=== PATIENT | male | born 1975 | race Caucasian/White ===

== ENCOUNTER 2016-12-13 16:27 | Day surgery (SDC) | payer BC ==
--- NOTE | 2016-12-11 22:12 | HP ---
CC: Dr. Ackerman * ADMITTING HISTORY AND PHYSICAL: DATE OF ADMISSION: 12/13/16 ADMITTING DIAGNOSES: 1. Right flank pain. 2. Hematuria. 3. Right renal calculus. PLANNED PROCEDURE: Shockwave lithotripsy of right renal calculus, possible right stent insertion. SURGEON: Oswaldo Marinelli MD HISTORY OF PRESENT ILLNESS: Bryson Reese is a 41-year-old gentleman with a history of recurrent renal calculi. He was recently evaluated for right flank pain and noted to have hematuria. Renal ultrasound revealed a 7 x 5 x 5 mm calculus in the right ureteropelvic junction with an additional 5 mm calculus in the right kidney. PAST MEDICAL HISTORY: Significant for: 1. Recurrent renal calculi. 2. Mixed hyperlipidemia. 3. Essential hypertension. 4. Lumbar radiculopathy. 5. Infantile cerebral palsy. 6. Psoriasis with arthropathy. MEDICATIONS ON ADMISSION: 1. Hydrocodone/acetaminophen p.r.n. 2. Carisoprodol 350 mg daily. 3. Amlodipine/benazepril 5/10 mg 1 tablet daily. 4. Atorvastatin 40 mg daily. 5. Humira every 3 weeks. 6. Aspirin 81 mg which is currently on hold. ALLERGIES AND INTOLERANCES: DIOVAN. PHYSICAL EXAMINATION GENERAL: Reveals a pleasant healthy-appearing young gentleman. VITAL SIGNS: Blood pressure is 150/94, pulse 95 per minute and regular, temperature 98, oxygen saturation 98% on room air. LUNGS: Clear bilaterally. CARDIOVASCULAR: Regular rate and rhythm. S1, S2. ABDOMEN: Soft with right flank tenderness. IMPRESSION: A 41-year-old gentleman with right flank pain and hematuria secondary to a 7 mm calculus in the right renal pelvis causing intermittent obstruction and an additional right renal calculus. PLAN: Planned procedure is shockwave lithotripsy of right renal calculi and possible right stent insertion. [id number]/CPS #: [id number] MTDD
[~2016-12-13 16:27] MED LIST: Buffered Lidocaine 0.9% SYRIN* 5 ML/SYR SYRINGE INTRADERM ONE; Buffered Lidocaine 0.9% SYRIN* 5 ML/SYR SYRINGE ONE; Dexamethasone IV* 4 MG/ML 1 ML (4 MG) IV SLOW PU ONE; Dexamethasone IV* 4 MG/ML 1 ML (4 MG) ONE; Famotidine IV* 10 MG/ML 2 ML (20 mg) IV ONE; Famotidine IV* 10 MG/ML 2 ML (20 mg) ONE; cefTRIAXone(*) 2 GM ADDV.VIAL IVPB ONE
--- NOTE | 2016-12-13 17:39 | RAD ---
INDICATION: Shock wave lithotripsy for right renal calculus COMPARISON: Similar radiograph dated December 11, 2016 TECHNIQUE: 2 views the abdomen were obtained. FINDINGS: At the level of the L1 vertebral body, corresponding to a 9 mm focus of calcium on the previous radiograph, there is a 4 mm focus of calcium overlying the expected location of the right renal collecting system. More inferiorly overlying the right transverse process of the L3 vertebral body is an additional 4 mm focus of calcium that was not seen before. IMPRESSION: RADIOGRAPHIC FINDINGS INDICATE REDUCTION IN SIZE OF RIGHT RENAL COLLECTING SYSTEM CALCULUS WITH ANTEGRADE DISPLACEMENT OF A 4 MM FOCUS OF CALCIUM OVERLYING THE EXPECTED LOCATION OF THE PROXIMAL RIGHT URETER.
[2016-12-13] MEDS ORDERED: Chloroprocaine 2%* 20 ML VIAL ONE (18:39)
[2016-12-13] MEDS ORDERED: Ondansetron INJ* 2 MG/ML VIAL ONE (18:39)
[2016-12-13] MEDS ORDERED: fentaNYL* 50 MCG/ML 2 ML VIAL (100 MCG VIAL) ONE ×2 (18:39→20:18)
[2016-12-13] MEDS ORDERED: Midazolam* 1 MG/ML 5 ML VIAL (5 MG) ONE (18:39)
[2016-12-13] MEDS ORDERED: Ondansetron INJ* 2 MG/ML VIAL IV PRN (19:30)
[2016-12-13] MEDS ORDERED: fentaNYL* 50 MCG/ML 2 ML VIAL (100 MCG VIAL) IV PRN (19:30)
[2016-12-13] MEDS ORDERED: DiMENhydriNATE IV* 50 MG/ML VIAL IV PUSH PRN (19:30)
[2016-12-13] MEDS ORDERED: oxyCODONE/Acetamin 5/325 MG* TAB ONE ×2 (20:18→20:45)
[2016-12-13] MEDS: oxyCODONE/Acetamin 5/325 MG* TAB PO PRN ×2 (20:21→20:52)
[2016-12-13 21:17] VITALS: BP 136/89
--- NOTE | 2016-12-13 21:55 | RAD ---
INDICATION: Right renal calculi COMPARISON: Similar KUB acquired at 1709 hours TECHNIQUE: 2 views the abdomen were obtained at 2114 hours FINDINGS: The previously identified renal calculi and ureteral calculi are not visible on this examination. IMPRESSION: INTERVAL RESOLUTION OF RIGHT-SIDED RENAL CALCULI DESCRIBED IN THE PRIOR KUB.
--- NOTE | 2016-12-14 13:01 | OP ---
CC: Dr. Berenice Mitchell * DATE OF OPERATION: 12/13/16 - SDS DATE OF : 71 SURGEON: Oswaldo Marinelli MD ANESTHESIOLOGIST: Toni Murphy MD ANESTHESIA: Spinal. PRE-OP DIAGNOSIS: Right renal calculi. POST-OP DIAGNOSIS: Right renal calculi. OPERATIVE PROCEDURE: Shock wave lithotripsy of right renal calculi. INDICATIONS: Bryson Reese is a 41-year-old gentleman with a history of recurrent renal calculi. He was recently evaluated for flank pain and was noted to have 2 calculi in the right kidney. COMPLICATIONS: None. POSTOPERATIVE CONDITION: Stable. DESCRIPTION OF PROCEDURE: After induction of spinal anesthesia, the patient was placed on lithotripsy table in the supine position. There were 2 calculi noted on fluoroscopy and dominant calculus which appeared to be in the area of renal pelvis was first addressed. Shock wave lithotripsy was carried out at a rate of 90 shocks per minute. After the initial 300 shocks, there was a pause in lithotripsy to minimize any potential trauma to the kidney. Lithotripsy was then resumed and a total of 2000 shocks were distributed between the 2 calculi with good fragmentation noted. The patient tolerated the procedure satisfactorily and was transferred back to the recovery area in stable condition. [id number]/CPS #: [id number] MTDD
== END 2016-12-13 21:00 | disposition home or self-care (01) ==
LOC: OR 16:27
PROVIDERS: ATTEND Urology
DX: N20.0 Calculus of kidney (principal); R31.9 Hematuria, unspecified; E78.5 Hyperlipidemia, unspecified; I10 Essential (primary) hypertension; G80.9 Cerebral palsy, unspecified; L40.50 Arthropathic psoriasis, unspecified; Z79.899 Other long term (current) drug therapy
CPT/HCPCS: 74000; A9270-GY; J0696; J1100; J1580; J2250; J2400; J2405; J3010

== ENCOUNTER 2018-07-21 16:20 | Observation (INO) | payer BC ==
[2018-07-21] MEDS ORDERED: Ketorolac INJ* 30 MG/ML 1 ML VIAL IV PUSH ONE (16:48)
[2018-07-21] MEDS ORDERED: Lorazepam PYXIS KEY PRN (16:48)
[2018-07-21] MEDS ORDERED: LORazepam INJ* 2 MG/ML 1 ML VIAL IV ONE (16:48)
--- NOTE | 2018-07-21 17:02 | ED ---
Back Pain - HPI Summary HPI Summary: This patient is a 43 year old male brought in by ambulance to [facility] with a chief complaint of back pain since 2 hours ago. Patient states that he has had a problem with back pain for several years and it is probably due to a disc. Patient states that todays episode was caused when he turned to move a laundry basket. Patient started suffering back spasms and EMS was called when the spasms would not stop. The pain is rated 8/10 in severity. Symptoms aggravated by nothing. Symptoms alleviated by Versed to mild relief. Patient denies any chest or abd pain, and denies any other medical complaints. - History of Current Complaint Chief Complaint: EDBackInjuryPain Stated Complaint: "BACK PAIN PER EMS" Time Seen by Provider: 07/21/18 16:46 Hx Obtained From: Patient Onset/Duration: Lasting Hours, Still Present Onset/Duration: Still Present Timing: Intermittent Back Pain Location: Is Discrete @ - lower mid back Severity Currently: Severe Pain Intensity: 8 Pain Scale Used: 0-10 Numeric Aggravating Symptom(s): Nothing Alleviating Symptom(s): Other - Versed Associated Signs And Symptoms: Positive: Negative - chest pain, abd pain - Allergies/Home Medications Allergies/Adverse Reactions: Allergies Allergy/AdvReac Type Severity Reaction Status Date / Time valsartan [From [facility]] Allergy Rash Verified 07/05/18 14:00 Home Medications: Home Medications Gabapentin 300 mg pe PO BEDTIME PRN 07/21/18 [History Confirmed 07/21/18] PMH/Surg Hx/FS Hx/Imm Hx Previously Healthy: No Endocrine/Hematology History: Denies: Hx Diabetes, Hx Thyroid Disease Cardiovascular History: Reports: Hx Coronary Artery Disease - CHOLESTEROL CONTROL WITH MEDICATION, Hx Hypercholesterolemia, Hx Hypertension, Other Cardiovascular Problems/Disorders - hyperlipidemia Denies: Hx Pacemaker/ICD Respiratory History: Reports: Hx Sleep Apnea - evaluation for 08/2013 Denies: Hx Asthma, Hx Chronic Obstructive Pulmonary Disease (COPD) GI History: Denies: Hx Ulcer, Other GI Disorders History: Reports: Hx Kidney Stones - chronic Denies: Hx Renal Disease Musculoskeletal History: Reports: Hx Arthritis, Hx Back Problems, Other Musculoskeletal History - CEREBRAL PALSY Sensory History: Denies: Hx Contacts or Glasses, Hx Hearing Aid Opthamlomology History: Denies: Hx Contacts or Glasses Neurological History: Reports: Hx Nerve Disease - radiculopathy second to lumbar disc herniation, Other Neuro Impairments/Disorders - cerebral palsy, PAIN CLINIC PT Psychiatric History: Denies: Hx Panic Disorder - Surgical History Surgery Procedure, Year, and Place: BILATERAL HAMSTRING LENGTHENING AND ABDUCTOR RELEASE X 2- [facility] 1998. Numerous surgery for muscle lengthening. Muscle release left eye approx 5 yrs ago. kidney stone surgery 4 years ago. kidney stone lithotripsy 2016. kidney stone lithotripsy 2017 Hx Anesthesia Reactions: No Infectious Disease History: No Infectious Disease History: Denies: Hx Hepatitis, Hx Human Immunodeficiency Virus (HIV), History Other Infectious Disease, Traveled Outside the [place] in Last 30 Days - Family History Family History: No FHx of malignant hyperthermia. No FHx of anesthesia reaction - Social History Lives: With Family Alcohol Use: Occasionally Hx Substance Use: No Substance Use Type: Reports: None Hx Tobacco Use: No Smoking Status (MU): Never Smoked Tobacco Have You Smoked in the Last Year: No Review of Systems Negative: Fever Negative: Chest Pain Negative: Abdominal Pain Positive: Other - back pain All Other Systems Reviewed And Are Negative: Yes Physical Exam - Summary Physical Exam Summary: Appearance: The patient is well-nourished in no acute distress and in no acute pain. Skin: The skin is warm and dry and skin color reflects adequate perfusion. HEENT: The head is normocephalic and atraumatic. The pupils are equal and reactive. The conjunctivae are clear and without drainage. Nares are patent and without drainage. Mouth reveals moist mucous membranes and the throat is without erythema and exudate. The external ears are intact. The ear canals are patent and without drainage. The tympanic membranes are intact. Neck: The neck is supple with full range of motion and non-tender. There are no carotid bruits. There is no neck vein distension. Respiratory: Chest is non-tender. Lungs are clear to auscultation and breath sounds are symmetrical and equal. Cardiovascular: Heart is regular rate and rhythm. There is no murmur or rub auscultated. There is no peripheral edema and pulses are symmetrical and equal. Abdomen: The abdomen is soft and non-tender. There are normal bowel sounds heard in all four quadrants and there is no organomegaly palpated. Musculoskeletal: Extremities are non-tender with full range of motion. There is good capillary refill. There is no peripheral edema or calf tenderness elicited. Positive straight leg test bilaterally. Tenderness in the parasacral region. Neurological: Patient is alert and oriented to person, place and time. The patient has symmetrical motor strength in all four extremities. Cranial nerves are grossly intact. Deep tendon reflexes are symmetrical and equal in all four extremities. Psychiatric: The patient has an appropriate affect and does not exhibit any anxiety or depression. Triage Information Reviewed: Yes Vital Signs On Initial Exam: Initial Vitals Temp Pulse Resp BP Pulse Ox 97.9 F 103 20 153/85 93 07/21/18 16:32 07/21/18 16:32 07/21/18 16:32 07/21/18 16:32 07/21/18 16:32 Vital Signs Reviewed: Yes Diagnostics - Vital Signs Vital Signs Temp Pulse Resp BP Pulse Ox 07/21/18 16:32 97.9 F 103 20 153/85 93 - Laboratory Result Diagrams: 07/21/18 19:23 07/21/18 19:23 Lab Statement: Any lab studies that have been ordered have been reviewed, and results considered in the medical decision making process. Back Pain Course/Dx - Course Course Of Treatment: Mr. Reese has a long history of low back problems. He thinks he pulled his back out at work this morning. I was unable to relieve his symptoms and get him ambulatory in spite of parenteral painkillers and muscle relaxers. I spoke with the hospitalist service about a transient admission. - Diagnoses Provider Diagnoses: Intractable back pain Discharge - Sign-Out/Discharge Documenting (check all that apply): Patient Departure Patient Received Moderate/Deep Sedation with Procedure: No - Discharge Plan Condition: Stable Disposition: ADMITTED TO [facility] - Billing Disposition and Condition Condition: STABLE Disposition: Admitted to [facility] - Attestation Statements Document Initiated by Denice: Yes Documenting Scribe: Blanka Ladd Provider For Whom Denice is Documenting (Include Credential): Bhaskar Cho MD Scribe Attestation: IBlanka, scribed for Bhaskar Cho MD on 07/22/18 at 1102. Scribe Documentation Reviewed: Yes Provider Attestation: The documentation as recorded by the Blanka giron accurately reflects the service I personally performed and the decisions made by me, Bhaskar Cho MD Status of Scribe Document: Viewed
[2018-07-21] MEDS ORDERED: HYDROmorphone INJ1* 1 MG/ML SYRINGE IV SLOW PU ONE (18:10)
[2018-07-21] MEDS ORDERED: Ondansetron INJ* 2 MG/ML VIAL IV ONE (18:10)
[2018-07-21] MEDS: Dexamethasone IV* 12 MG in PREMIX* 0 ML IV SLOW PU SCH (18:57)
[2018-07-21 19:36] LABS: ABS Lymphocytes 3.2 10^3/ul (1.0-4.8); ABS Monocytes 0.6 10^3/ul (0-0.8); ABS Neutrophils 7.7 10^3/ul (1.5-7.7); Eosinophil % 0.2 %; Hematocrit 46 % (42-52); Lymphocyte % 27.8 %; Mean Corpuscular HGB Conc 35 g/dL (31-36); Mean Corpuscular Hemoglobin 31 pg (27-31); Mean Corpuscular Volume 89 fL (80-94); Mean Platelet Volume 9.1 fL (7.4-10.4); Platelet Count 249 10^3/uL (150-450); Red Blood Count 5.18 10^6 /uL (4.18-5.48); Red Cell Distribution Width 13 % (10.5-15); White Blood Count 11.5 10^3/uL (3.5-10.8)
[2018-07-21 19:47] LABS: ALT 32 U/L (7-52); AST 24 U/L (13-39); Albumin 4.7 g/dL (3.2-5.2); Albumin/Globulin Ratio 1.7 (1-3); Alkaline Phosphatase 67 U/L (34-104); Anion Gap 8 mmol/L (2-11); BUN/Creatinine Ratio 15.5 (8-20); Blood Urea Nitrogen 13 mg/dL (6-24); C Reactive Protein < 1.00 mg/L (<8.01); CO2 Carbon Dioxide 23 mmol/L (22-32); Calcium 9.5 mg/dL (8.6-10.3); Chloride 107 mmol/L (101-111); EGFR African American 119.6 (>60); EGFR Non-African American 98.8 (>60); Globulin 2.7 g/dL (2-4); Glucose 101 mg/dL (70-100); Potassium 3.8 mmol/L (3.5-5.0); Sodium 138 mmol/L (135-145); Total Protein 7.4 g/dL (6.4-8.9)
[2018-07-21] MEDS ORDERED: Ondansetron INJ* 2 MG/ML VIAL IV PRN (20:26)
[2018-07-21] MEDS ORDERED: HYDROmorphone INJ* 0.5 MG/0.5 ML SYRINGE IV SLOW PU PRN ×2 (20:35→21:08)
[2018-07-21 20:38] LABS: Erythrocyte Sed Rate 0 mm/Hr (0-14)
[2018-07-21] MEDS ORDERED: Dexamethasone IV* 4 MG/ML 1 ML (4 MG) ONE (21:38)
[2018-07-21] MEDS: HYDROcodone/ACETAMIN 5-325 MG* 1 TAB PO PRN (21:42)
[2018-07-21] MEDS: HYDROmorphone INJ1* 1 MG/ML SYRINGE IV SLOW PU PRN (21:55)
--- NOTE | 2018-07-21 22:34 | HP ---
CC: Dr. Ackerman * HISTORY AND PHYSICAL: DATE OF ADMISSION: 07/21/18 PROVIDER: Tahmina Banegas NP PRIMARY CARE PROVIDERS: Dr. Ackerman. ATTENDING PHYSICIAN WHILE IN THE HOSPITAL: Joseph Carpio MD * (dictated by Tahmina Banegas NP) CHIEF COMPLAINT: Intractable back pain. HISTORY OF PRESENT ILLNESS: Mr. Reese is a 43-year-old male with a past medical history of hypertension, hyperlipidemia, cerebral palsy, chronic back pain, arthritis, and history of kidney stones who presented to the emergency room with acute onset of lower back pain. The patient reports that approximately 5 years ago he started with back pain. He reports that he has 5 bad disks in his back. He reports that he has had this back pain on and off and has been working with Dr. Palma in pain management. He also reports that he is scheduled to have a radiofrequency ablation at the end of the month with Dr. Palma. This evening, the patient reports that he bent over to pick the laundry basket and developed low back pain with spasms radiating to his left thigh that stops just at the knee. Due to the severe back pain and spasms, he was brought to the emergency room by EMS. The patient denies any fever, unintended weight loss, chest pain or edema, cough, hemoptysis, or shortness of breath. Denies any nausea, vomiting, diarrhea, or abdominal pain, gross hematuria, dysuria. He does report some tingling in the left lateral thigh with spasms. He denies any visual complaints, dysphagia, arthralgias, myalgias. He does report he has had a rash for 2 months in his groin that is being treated by Dr. Marinelli at this time. He denies any psychosis or anxiety. He denies any saddle anesthesia, any perineal numbness. He denies any loss of bladder or bowel function. Due to his intractable back pain, we were asked to see and evaluate him for admission. PAST MEDICAL HISTORY: 1. Hypertension. 2. Hyperlipidemia, 3. Cerebral palsy. 4. Back pain. 5. Arthritis. 6. Kidney stones. PAST SURGICAL HISTORY: 1. Hamstring lengthening. 2. Abductor tendon release. 3. Bilateral eye surgery for alignment. 4. Multiple tendon releases per the patient due to his cerebral palsy. HOME MEDICATIONS: 1. Amlodipine/benazepril 5/10 one tablet p.o. daily. 2. Atorvastatin 10 mg p.o. daily. 3. Soma 350 mg p.o. at bedtime. 4. Hydrocodone/acetaminophen 7.5/325 one tablet 3 times a day as needed for pain. 5. Humira 40 mg subcu q.21 days. FAMILY HISTORY: Father with a history of hypertension. Grandfather with diabetes. No reported history of cancer. SOCIAL HISTORY: The patient denies any tobacco or illicit drug use. He does report rare alcohol use. 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 He is . Surrogate decision maker in the event he is unable to make his own decisions is his , Erma. He is a full code. REVIEW OF SYSTEMS: A 14-point review of systems was completed. All pertinent positives are mentioned in the HPI, otherwise were negative. PHYSICAL EXAMINATION GENERAL: At this time, Mr. Reese is a 43-year-old male. He is resting on the stretcher in the emergency room. He does appear to be in moderate distress with frequent spasms. HEENT: Head is atraumatic, normocephalic. Eyes: EOMs are intact. Sclerae anicteric and not pale. Oral mucosa appeared to be moist. NECK: Supple. LUNGS: Clear to auscultation bilaterally. No wheezes, rales, or rhonchi. CARDIAC: S1, S2. Regular rate and rhythm. No murmurs, rubs, or gallops. ABDOMEN: Soft and nontender. Bowel sounds are present x4. BACK: No C-spine, T-spine, or L-spine tenderness to palpation. No CVA tenderness. EXTREMITIES: Pedal pulses are +2 bilaterally. There is no clubbing or cyanosis. PSYCH: The patient is calm and cooperative. SKIN: Intact. LABORATORY DATA AND DIAGNOSTIC STUDIES: WBCs were 11.5, RBCs 5.18, hemoglobin 16.0, hematocrit of 46, platelet count is 249. Sodium 138, potassium 3.8, chloride 107, carbon dioxide was 23, anion gap was 8, BUN was 13, creatinine 0.84, glucose 101. Calcium 9.5. ASTs were 24, ALTs were 32, alkaline phosphatase was 67. C- reactive protein was less than 1. ESR was 0. ASSESSMENT AND PLAN: Mr. Reese is a 43-year-old male with a past medical history significant for cerebral palsy, hypertension, hyperlipidemia, and chronic back pain who presented to the emergency room with severe back pain and muscle spasms. He will be admitted under observation for: 1. Intractable lower back pain. The patient reports a chronic history of chronic back pain, is followed with Dr. Palma in pain management. At this time , I will order Valium 5 mg q.8 hours as needed for muscle spasms. He can have Dilaudid 0.5 mg IV q.4 hours as needed for severe pain. He can have hydrocodone 2 tablets every 6 hours as needed for moderate to severe pain. I will continue his hydrocodone 1 tablet every 8 hours as needed for moderate to severe pain. I am going to hold his Soma this evening as the patient will be receiving Valium and Dilaudid in a concern for oversedation with the use of Soma. If the patient's symptoms do not improve or worsen, he develops urinary retention or saddle anesthesia, I would recommend an MRI and consult to neurosurgery. 2. Hyperlipidemia. The patient to have atorvastatin 10 mg p.o. daily. 3. Hypertension. The patient will continue on amlodipine 5 mg and lisinopril 10 mg p.o. daily. 4. FEN. He can have a regular diet. 5. Code status. He is a full code. 6. DVT prophylaxis. I will place him on SCDs. TIME SPENT: Time spent on this admission was 60 minutes, greater than half the time was spent at the bedside reviewing events leading thus far to his hospitalization, performing my physical exam, and reviewing my plan of care. I have discussed this with my attending, Dr. Joseph Carpio; he is in agreement with my plan. TAHMINA BANEGAS, [employer] [id number]/[facility] #: [id number] PRECIUOS
[2018-07-21] MEDS: Diazepam TAB(*) 5 MG PO PRN (23:09)
[2018-07-22] MEDS ORDERED: Dexamethasone IV* 4 MG/ML 1 ML (4 MG) ONE (00:21)
[2018-07-22] MEDS: Dexamethasone IV* 12 MG in PREMIX* 0 ML IV SLOW PU SCH (00:47)
[2018-07-22] MEDS: HYDROmorphone INJ1* 1 MG/ML SYRINGE IV SLOW PU PRN ×3 (04:48→20:07)
[2018-07-22] MEDS: HYDROcodone/ACETAMIN 5-325 MG* 1 TAB PO PRN ×2 (07:36→15:16)
[2018-07-22] MEDS: Diazepam TAB(*) 5 MG PO PRN ×2 (07:37→15:41)
[2018-07-22] MEDS: Lisinopril TAB* 10 MG PO SCH (08:39)
[2018-07-22] MEDS: amLODIPine TAB* 5 MG PO SCH (08:39)
--- NOTE | 2018-07-22 15:34 | PN ---
Subjective Date of Service: 07/22/18 Interval History: Pt seen and examined. Meds and labs reviewed. CC: Back pain slightly improved from average of 10/10 to 7/10 w/ numbness and pain of lateral thigh while numbness on anterior BL thighs ROS: Denied MAYES/dizziness, F/C, N/V, CP, SOB, increased cough, sputum production , abd pain, diarrhea, constipation, dysuria, myalgias, arthralgias, throat pain , and new skin lesions. The rest of the 14 point ROS are unremarkable. PHYSICAL EXAM: GEN APPEARANCE: Awake, not in acute distress HEENT: NC/AT, PERRLA, moist oral mucosa, (-) throat erythema NECK: Soft, supple, (-) cervical LAD, (-)JVD HEART: S1S2 WNL, RRR, No MRG CHEST: CTA, BL, GAE, No W/R/R ABD: Soft, ND/NT, NABS 4x Q EXT: No C/C/E SKIN: Warm to touch PSYCH: No active psychosis, hallucinations, depression, SI/HI Objective Active Medications: Acetaminophen (Tylenol Tab*) 1,000 mg PO BID [facility] Hydrocodone Bitart/Acetaminophen ([place] 5-325 Tab*) 2 tab PO Q6H PRN PRN Reason: PAIN - MODERATE Last Admin: 07/22/18 15:16 Dose: 2 tab Amlodipine Besylate (Norvasc Tab*) 5 mg PO QAM [facility] Last Admin: 07/22/18 08:39 Dose: 5 mg Atorvastatin Calcium (Lipitor*) 10 mg PO QPM [facility] Diazepam (Valium Tab(*)) 5 mg PO Q8H PRN PRN Reason: spasms Last Admin: 07/22/18 07:37 Dose: 5 mg Enoxaparin Sodium (Lovenox(*)) 40 mg SUBCUT Q24H [facility] Gabapentin (Neurontin Cap(*)) 200 mg PO TID [facility] Hydromorphone HCl (Dilaudid Inj1s*) 0.5 mg IV SLOW PU Q4H PRN PRN Reason: PAIN - SEVERE Last Admin: 07/22/18 10:11 Dose: 0.5 mg Lisinopril (Prinivil Tab*) 10 mg PO DAILY [facility] Last Admin: 07/22/18 08:39 Dose: 10 mg Miscellaneous (Ativan Pyxis Deluna) 1 ea N/A .ATIVAN IV DELUNA PRN PRN Reason: PYXIS DELUNA Ondansetron HCl (Zofran Inj*) 4 mg IV Q6H PRN PRN Reason: NAUSEA/VOMITING Vital Signs - 8 hr 07/22/18 07/22/18 07/22/18 07:36 07:37 07:43 Temperature 98.2 F Pulse Rate 82 Respiratory 16 16 18 Rate Blood Pressure 120/65 (mmHg) O2 Sat by Pulse 94 Oximetry 07/22/18 07/22/18 07/22/18 09:40 10:11 11:48 Temperature 98.4 F Pulse Rate 92 Respiratory 16 16 20 Rate Blood Pressure 105/64 (mmHg) O2 Sat by Pulse 93 Oximetry 07/22/18 15:16 Temperature Pulse Rate Respiratory 16 Rate Blood Pressure (mmHg) O2 Sat by Pulse Oximetry Oxygen Devices in Use Now: None Result Diagrams: 07/21/18 19:23 07/21/18 19:23 Assess/Plan/Problems-Billing Assessment: - Patient Problems (1) Low back pain Current Visit: Yes Status: Acute Code(s): M54.5 - LOW BACK PAIN SNOMED Code(s): 643015816 Comment: -Pt mentions he has been evaluated years ago by Dr. Chau and the decision was conservative management -Ordered MRI today to compare from previous and shows left-sided dic protrusion at L2-L3 progressed in comparison to 2016 imaging and that central disc protrusion at L3-L4 is retracted compared to 2016. -Discussed above results with Dr. Chau and mentioned pt can F/U as an outpt and will defer -Will start pt on low dose Gabapentin and scheduled Tylenol -Continue PRN pain meds ordered (2) Hyperlipidemia Current Visit: Yes Status: Acute Code(s): E78.5 - HYPERLIPIDEMIA, UNSPECIFIED SNOMED Code(s): 64756844 Comment: -Continue Atorvastatin (3) HTN (hypertension) Current Visit: Yes Status: Acute Code(s): I10 - ESSENTIAL (PRIMARY) HYPERTENSION SNOMED Code(s): 22040440 Comment: -Well-controlled -Continue Amlodipine and Lisinopril (4) DVT prophylaxis Current Visit: Yes Status: Acute Code(s): Z29.9 - ENCOUNTER FOR PROPHYLACTIC MEASURES, UNSPECIFIED SNOMED Code(s): 712609816 Comment: -Continue SCDs -Given pain limits pts movement significantly, will place pt on Lovenox SQ Status and Disposition: -For PT eval -For possible D/C in 1-2 days
[2018-07-22] MEDS: Enoxaparin(*) 40 MG/0.4 ML SYR SUBCUT SCH (15:41)
[2018-07-22] MEDS: Gabapentin CAP(*) 100 MG PO SCH ×2 (15:47→20:06)
[2018-07-22] MEDS ORDERED: Gabapentin CAP(*) 100 MG PO SCH (16:00)
[2018-07-22] MEDS: Atorvastatin* 10 MG TAB PO SCH (17:29)
[2018-07-22] MEDS: Acetaminophen TAB* 325 MG PO SCH (20:06)
[2018-07-23] MEDS: HYDROmorphone INJ1* 1 MG/ML SYRINGE IV SLOW PU PRN ×4 (03:07→18:52)
[2018-07-23] MEDS: Diazepam TAB(*) 5 MG PO PRN ×3 (03:14→21:24)
[2018-07-23] MEDS: HYDROcodone/ACETAMIN 5-325 MG* 1 TAB PO PRN ×3 (03:59→21:23)
[2018-07-23] MEDS: amLODIPine TAB* 5 MG PO SCH (07:51)
[2018-07-23] MEDS: Lisinopril TAB* 10 MG PO SCH (07:51)
[2018-07-23] MEDS: Acetaminophen TAB* 325 MG PO SCH ×2 (07:51→21:23)
[2018-07-23] MEDS: Gabapentin CAP(*) 100 MG PO SCH (07:51)
[2018-07-23 08:19] LABS: ABS Lymphocytes 4.2 10^3/ul (1.0-4.8); ABS Monocytes 0.7 10^3/ul (0-0.8); ABS Neutrophils 5.6 10^3/ul (1.5-7.7); Eosinophil % 0.3 %; Hematocrit 45 % (42-52); Hemoglobin 15.2 g/dL (14.0-18.0); Lymphocyte % 39.7 %; Mean Corpuscular HGB Conc 34 g/dL (31-36); Mean Corpuscular Hemoglobin 31 pg (27-31); Mean Corpuscular Volume 90 fL (80-94); Mean Platelet Volume 8.7 fL (7.4-10.4); Nucleated Red Blood Cells % 0.1; Platelet Count 227 10^3/uL (150-450); Red Blood Count 4.95 10^6 /uL (4.18-5.48); Red Cell Distribution Width 13 % (10.5-15); White Blood Count 10.6 10^3/uL (3.5-10.8)
[2018-07-23 08:35] LABS: Albumin 4.4 g/dL (3.2-5.2); Albumin/Globulin Ratio 1.6 (1-3); BUN/Creatinine Ratio 20.9 (8-20); EGFR African American 116.4 (>60); EGFR Non-African American 96.2 (>60); Globulin 2.7 g/dL (2-4); Magnesium 2.2 mg/dL (1.9-2.7); Phosphorus 3.6 mg/dL (2.5-5.0); Total Bilirubin 0.7 mg/dL (0.2-1.0); Total Protein 7.1 g/dL (6.4-8.9)
[2018-07-23] MEDS ORDERED: Methocarbamol TAB* 500 MG PO SCH ×2 (09:00)
[2018-07-23] MEDS ORDERED: Gabapentin CAP(*) 300 MG PO SCH (09:00)
[2018-07-23] MEDS ORDERED: Gabapentin CAP(*) 100 MG PO ONE (10:00)
[2018-07-23] MEDS ORDERED: Polyethylene Glycol 3350* 17 GM PACKET PO STA (13:59)
[2018-07-23] MEDS ORDERED: Senna/Docusate (NF) TAB PO SCH (14:00)
--- NOTE | 2018-07-23 14:04 | PN ---
Subjective Date of Service: 07/23/18 Interval History: Pt seen and examined. Meds and labs reviewed. Pt was walking late last night and experienced severe muscle spasms while in the bathroom. Staff reported he was unable to get out due to pain on movement for almost an hour. Pain meds adjusted. Please see below. CC: Back pain/cramping severe exacerbation. Recently received pain meds and currently at 07/19 ROS: Denied MAYES/dizziness, F/C, N/V, CP, SOB, increased cough, sputum production , abd pain, diarrhea, constipation, dysuria, throat pain, and new skin lesions. The rest of the 14 point ROS are unremarkable. PHYSICAL EXAM: GEN APPEARANCE: Awake, not in acute distress HEENT: NC/AT, PERRLA, moist oral mucosa, (-) throat erythema NECK: Soft, supple, (-) cervical LAD, (-)JVD HEART: S1S2 WNL, RRR, No MRG CHEST: CTA, BL, GAE, No W/R/R ABD: Soft, ND/NT, NABS 4x Q EXT: No C/C/E SKIN: Warm to touch PSYCH: No active psychosis, hallucinations, depression, SI/HI Objective Active Medications: Acetaminophen (Tylenol Tab*) 975 mg PO BID [facility] Last Admin: 07/23/18 07:51 Dose: 975 mg Hydrocodone Bitart/Acetaminophen ([place] 5-325 Tab*) 2 tab PO Q6H PRN PRN Reason: PAIN - MODERATE Last Admin: 07/23/18 12:09 Dose: 2 tab Amlodipine Besylate (Norvasc Tab*) 5 mg PO QAM [facility] Last Admin: 07/23/18 07:51 Dose: 5 mg Atorvastatin Calcium (Lipitor*) 10 mg PO QPM [facility] Last Admin: 07/22/18 17:29 Dose: 10 mg Diazepam (Valium Tab(*)) 5 mg PO Q8H PRN PRN Reason: spasms Last Admin: 07/23/18 12:10 Dose: 5 mg Enoxaparin Sodium (Lovenox(*)) 40 mg SUBCUT Q24H [facility] Last Admin: 07/22/18 15:41 Dose: 40 mg Gabapentin (Neurontin Cap(*)) 300 mg PO 0900,1400,2100 [facility] Hydromorphone HCl (Dilaudid Inj1s*) 0.5 mg IV SLOW PU Q4H PRN PRN Reason: PAIN - SEVERE Last Admin: 07/23/18 07:51 Dose: 0.5 mg Lisinopril (Prinivil Tab*) 10 mg PO DAILY [facility] Last Admin: 07/23/18 07:51 Dose: 10 mg Methocarbamol (Robaxin Tab*) 1,000 mg PO QID [facility] Miscellaneous (Ativan Pyxis Lowry) 1 ea N/A .ATIVAN IV LOWRY PRN PRN Reason: PYXIS LOWRY Ondansetron HCl (Zofran Inj*) 4 mg IV Q6H PRN PRN Reason: NAUSEA/VOMITING Polyethylene Glycol/Electrolytes (Miralax*) 17 gm PO ONCE STA Stop: 07/23/18 14:00 Senna/Docusate Sodium (Sennokot-S(Nf)) 2 tab PO DAILY [facility] Vital Signs - 8 hr 07/23/18 07/23/18 07/23/18 07:00 07:35 07:51 Temperature 98.8 F Pulse Rate 72 Respiratory 16 18 16 Rate Blood Pressure 109/56 (mmHg) O2 Sat by Pulse 94 Oximetry 07/23/18 07/23/18 07/23/18 08:50 09:43 09:45 Temperature Pulse Rate Respiratory 16 16 16 Rate Blood Pressure (mmHg) O2 Sat by Pulse Oximetry 07/23/18 07/23/18 07/23/18 12:00 12:09 12:10 Temperature Pulse Rate Respiratory 16 16 16 Rate Blood Pressure (mmHg) O2 Sat by Pulse Oximetry Oxygen Devices in Use Now: None Result Diagrams: 07/23/18 08:11 07/23/18 08:10 Assess/Plan/Problems-Billing Assessment: - Patient Problems (1) Low back pain Current Visit: Yes Status: Acute Code(s): M54.5 - LOW BACK PAIN SNOMED Code(s): 115752010 Comment: -Pt mentions he has been evaluated years ago by Dr. Chau and the decision was conservative management -Ordered MRI today to compare from previous and shows left-sided dic protrusion at L2-L3 progressed in comparison to 2016 imaging and that central disc protrusion at L3-L4 is retracted compared to 2016. -Discussed above results with Dr. Chau and mentioned pt can F/U as an outpt and will defer -Continue scheduled Tylenol doses -Increase Gabapentin to 300 mg PO TID and added Methocarbamol for muscle spasms -D/W Dr. Tijerina---will await further input -Continue PRN pain meds ordered (2) Hyperlipidemia Current Visit: Yes Status: Acute Code(s): E78.5 - HYPERLIPIDEMIA, UNSPECIFIED SNOMED Code(s): 31991677 Comment: -Continue Atorvastatin (3) HTN (hypertension) Current Visit: Yes Status: Acute Code(s): I10 - ESSENTIAL (PRIMARY) HYPERTENSION SNOMED Code(s): 74201496 Comment: -Well-controlled -Continue Amlodipine and Lisinopril (4) DVT prophylaxis Current Visit: Yes Status: Acute Code(s): Z29.9 - ENCOUNTER FOR PROPHYLACTIC MEASURES, UNSPECIFIED SNOMED Code(s): 077243401 Comment: -Continue SCDs -Given pain limits pts movement significantly, will place pt on Lovenox SQ Status and Disposition: -For PT eval -Will await Dr. Lock input -Possible D/C in AM
[2018-07-23] MEDS: Senna TAB PO SCH (14:25)
[2018-07-23] MEDS: Methocarbamol TAB* 500 MG PO SCH ×2 (14:25→17:09)
[2018-07-23] MEDS: Gabapentin CAP(*) 300 MG PO SCH ×2 (14:26→21:24)
[2018-07-23] MEDS: Docusate CAP* 100 MG PO SCH (14:26)
[2018-07-23] MEDS: Atorvastatin* 10 MG TAB PO SCH (17:09)
[2018-07-23] MEDS: Enoxaparin(*) 40 MG/0.4 ML SYR SUBCUT SCH (17:09)
--- NOTE | 2018-07-23 17:38 | CONSULT ---
Consult Consult: INPATIENT PAIN CONSULTATION Bryson andrews a 43 year old male. He has cerebral palsy with spastic diplegia. He had several tendon lengthening surgeries as a child and young adult , and wore leg braces as a child. He has some ongoing difficulties with spasticity in his legs. He has been able to work at [employer]. He has a long history of low back pain and has seen Dr. Palma and Facundo in the pain clinic since 2015. He had an MRI of the lumbar spine in 2013. This showed a left disc herniation at L4/5. After he saw Dr. Palma he had a new MRI of the lumbar spine in Apr, 2015, showing a left disc extrusion at L2/3 and a broad based disc bulge at L4/5. The patient underwent LESIs and later had medial branch blocks and RFA of the left L4/5 and L5/S1 and then the right L4/5 and L5/S1. He takes Baclofen 10 mg at 6 pm and Soma 350 mg before bed, as well as hydrocodone/ APAP 5/325 TID. He was last seen on July 05. 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 He had immediate pain in his low back that knocked him to the floor. He came to the ER here and was admitted. He had a new MRI of his lumbar spine. Again was seen the left sided disc at L2/3, central disc protrusion at L4/5 and central disc protrusion at L3/4. I have been asked to see him. He describes a lot of spasms in his back. He is currently on hydrocodone/APAP, 5/325, 2 tabs Q6 PRN, Valium 5 mg PO TID PRN, Robaxin 1,000 mg Q6 PRN, and dilaudid, 0.5 mg IV Q4 PRN, and gabapentin 300 mg TID. I am asked to see him PAST MEDICAL HISTORY: Cerebral Palsy, Low back pain, HTN, hyperlipidemia Allergies Allergy/AdvReac Type Severity Reaction Status Date / Time valsartan [From Juan Miguel] Allergy Rash Verified 07/05/18 14:00 Current Medications Acetaminophen (Tylenol Tab*) 975 mg PO BID [facility] Last Admin: 07/23/18 07:51 Dose: 975 mg Hydrocodone Bitart/Acetaminophen ([place] 5-325 Tab*) 2 tab PO Q6H PRN PRN Reason: PAIN - MODERATE Last Admin: 07/23/18 12:09 Dose: 2 tab Amlodipine Besylate (Norvasc Tab*) 5 mg PO QAM [facility] Last Admin: 07/23/18 07:51 Dose: 5 mg Atorvastatin Calcium (Lipitor*) 10 mg PO QPM [facility] Last Admin: 07/23/18 17:09 Dose: 10 mg Diazepam (Valium Tab(*)) 5 mg PO Q8H PRN PRN Reason: spasms Last Admin: 07/23/18 12:10 Dose: 5 mg Docusate Sodium (Colace Cap*) 100 mg PO DAILY [facility] Last Admin: 07/23/18 14:26 Dose: 100 mg Enoxaparin Sodium (Lovenox(*)) 40 mg SUBCUT Q24H [facility] Last Admin: 07/23/18 17:09 Dose: 40 mg Gabapentin (Neurontin Cap(*)) 300 mg PO 0900,1400,2100 [facility] Last Admin: 07/23/18 14:26 Dose: 300 mg Hydromorphone HCl (Dilaudid Inj1s*) 0.5 mg IV SLOW PU Q4H PRN PRN Reason: PAIN - SEVERE Last Admin: 07/23/18 14:27 Dose: 0.5 mg Lisinopril (Prinivil Tab*) 10 mg PO DAILY [facility] Last Admin: 07/23/18 07:51 Dose: 10 mg Methocarbamol (Robaxin Tab*) 1,000 mg PO QID [facility] Last Admin: 07/23/18 17:09 Dose: 1,000 mg Miscellaneous (Ativan Pyxis Lowry) 1 ea N/A .ATIVAN IV LOWRY PRN PRN Reason: PYXIS LOWRY Ondansetron HCl (Zofran Inj*) 4 mg IV Q6H PRN PRN Reason: NAUSEA/VOMITING Senna (Senokot Tab*) 2 tab PO DAILY [facility] Last Admin: 07/23/18 14:25 Dose: 2 tab SOCIAL HISTORY: , lives with . Works for [employer]. Non-smoker, rare drinker ROS: No SOB or chest pain. Vital Signs Temp Pulse Resp BP Pulse Ox 97.5 F 76 16 135/89 93 07/23/18 15:54 07/23/18 15:54 07/23/18 17:09 07/23/18 15:54 07/23/18 15:54 EXAM: LUNGS: Clear HEART: Reg rhythm ABDOMEN: Soft EXTREMITIES: Increased tone, bilateral LEs. Left leg has less bulk than right. UE tone may be slightly increased BACK: Muscle tightness in low back NEUROLOGIC: alert and oriented. Decreased strength in lower extremities ASSESSMENT: 1. Low Back Pain 2. Cerebral Palsy/Spastic Diplegia PLAN: I will add back in scheduled Baclofen, 10 mg TID. Continue hydrocodone. Will d/c Robaxin. I will try to see tomorrow. Much of the back pain seems due to spasticity and an injection probably will not help him.
[2018-07-23] MEDS: Baclofen TAB* 10 MG PO SCH (21:24)
[2018-07-24] MEDS: HYDROcodone/ACETAMIN 5-325 MG* 1 TAB PO PRN ×3 (08:37→22:20)
[2018-07-24] MEDS: Docusate CAP* 100 MG PO SCH ×2 (08:38→21:52)
[2018-07-24] MEDS: Lisinopril TAB* 10 MG PO SCH (08:38)
[2018-07-24] MEDS: Acetaminophen TAB* 325 MG PO SCH ×2 (08:38→21:53)
[2018-07-24] MEDS: Senna TAB PO SCH (08:38)
[2018-07-24] MEDS: Baclofen TAB* 10 MG PO SCH ×3 (08:39→21:53)
[2018-07-24] MEDS: Gabapentin CAP(*) 300 MG PO SCH ×3 (08:39→21:53)
[2018-07-24] MEDS: amLODIPine TAB* 5 MG PO SCH (09:09)
[2018-07-24] MEDS: Diazepam TAB(*) 5 MG PO PRN ×2 (09:36→16:51)
--- NOTE | 2018-07-24 10:26 | PN ---
Subjective Date of Service: 07/24/18 Interval History: Pt is feeling ok currently. He just ambulated to outside the room door and back with PT. He thinks he may have been able to go a little further but did not want to push it too much. He does not feel ready to go home yet as he has several stairs at home and he has not done stairs yet. In terms of his pain he states it is more constant than it had been. He thinks using the back brace helped a little. Objective Active Medications: Acetaminophen (Tylenol Tab*) 975 mg PO BID [facility] Last Admin: 07/24/18 08:38 Dose: 975 mg Hydrocodone Bitart/Acetaminophen ([place] 5-325 Tab*) 2 tab PO Q6H PRN PRN Reason: PAIN - MODERATE Last Admin: 07/24/18 08:37 Dose: 2 tab Amlodipine Besylate (Norvasc Tab*) 5 mg PO QAM [facility] Last Admin: 07/24/18 09:09 Dose: 5 mg Atorvastatin Calcium (Lipitor*) 10 mg PO QPM [facility] Last Admin: 07/23/18 17:09 Dose: 10 mg Baclofen (Lioresal Tab*) 10 mg PO TID [facility] Last Admin: 07/24/18 08:39 Dose: 10 mg Diazepam (Valium Tab(*)) 5 mg PO Q8H PRN PRN Reason: spasms Last Admin: 07/24/18 09:36 Dose: 5 mg Docusate Sodium (Colace Cap*) 100 mg PO DAILY [facility] Last Admin: 07/24/18 08:38 Dose: 100 mg Enoxaparin Sodium (Lovenox(*)) 40 mg SUBCUT Q24H [facility] Last Admin: 07/23/18 17:09 Dose: 40 mg Gabapentin (Neurontin Cap(*)) 300 mg PO 0900,1400,2100 [facility] Last Admin: 07/24/18 08:39 Dose: 300 mg Hydromorphone HCl (Dilaudid Inj1s*) 0.5 mg IV SLOW PU Q4H PRN PRN Reason: PAIN - SEVERE Last Admin: 07/23/18 18:52 Dose: 0.5 mg Lisinopril (Prinivil Tab*) 10 mg PO DAILY [facility] Last Admin: 07/24/18 08:38 Dose: 10 mg Miscellaneous (Ativan Pyxis Deluna) 1 ea N/A .ATIVAN IV DELUNA PRN PRN Reason: PYXIS DELUNA Ondansetron HCl (Zofran Inj*) 4 mg IV Q6H PRN PRN Reason: NAUSEA/VOMITING Senna (Senokot Tab*) 2 tab PO DAILY [facility] Last Admin: 07/24/18 08:38 Dose: 2 tab Vital Signs - 8 hr 07/24/18 07/24/18 07/24/18 07:27 08:00 08:37 Temperature 97.6 F Pulse Rate 68 Respiratory 18 18 18 Rate Blood Pressure 109/66 (mmHg) O2 Sat by Pulse 95 Oximetry 07/24/18 07/24/18 07/24/18 08:39 09:36 10:21 Temperature Pulse Rate Respiratory 18 18 18 Rate Blood Pressure (mmHg) O2 Sat by Pulse Oximetry Oxygen Devices in Use Now: None Appearance: Middle aged male walking back to bed, NAD Eyes: No Scleral Icterus Ears/Nose/Mouth/Throat: Mucous Membranes Moist Respiratory: Symmetrical Chest Expansion and Respiratory Effort, Clear to Auscultation Cardiovascular: NL Sounds; No Murmurs; No JVD, RRR, No Edema Abdominal: NL Sounds; No Tenderness; No Distention Extremities: No Clubbing, Cyanosis Skin: No Nodules or Sclerosis Neurological: Alert and Oriented x 3 Result Diagrams: 07/23/18 08:11 07/23/18 08:10 Assess/Plan/Problems-Billing Ms Reese is a 43 yo M who has a h/o CP and chronic back pain who presented to the ER with c/o severe back pain. - Patient Problems (1) Intractable back pain Current Visit: Yes Status: Acute Code(s): M54.9 - DORSALGIA, UNSPECIFIED SNOMED Code(s): 109890090 Comment: Pt has had improvement in his mobility but is not back to baseline. Will continue the current pain regimen as there has been noticable change by nursing. Await any further recommendations from Dr. Tijerina. Attempt stairs prior to going home. (2) HTN (hypertension) Current Visit: Yes Status: Acute Code(s): I10 - ESSENTIAL (PRIMARY) HYPERTENSION SNOMED Code(s): 73565983 Comment: BP is under good control. Continue amlodipine 5mg daily and lisinopril 10mg daily (in substitution of amlodipin/benazepril). (3) Hyperlipidemia Current Visit: Yes Status: Acute Code(s): E78.5 - HYPERLIPIDEMIA, UNSPECIFIED SNOMED Code(s): 06066810 Comment: Continue lipitor. (4) DVT prophylaxis Current Visit: Yes Status: Acute Code(s): Z29.9 - ENCOUNTER FOR PROPHYLACTIC MEASURES, UNSPECIFIED SNOMED Code(s): 970705337 Comment: lovenox (5) Full code status Current Visit: Yes Status: Acute Code(s): Z78.9 - OTHER SPECIFIED HEALTH STATUS SNOMED Code(s): 045387222 Status and Disposition: .
[2018-07-24] MEDS ORDERED: Polyethylene Glycol 3350* 17 GM PACKET PO PRN (12:46)
[2018-07-24] MEDS ORDERED: Magnesium Hydroxide LIQ* 30 ML UDC PO ONE (12:47)
--- NOTE | 2018-07-24 12:51 | PN ---
Progress Note - Progress Note Date of Service: 07/24/18 Note: INPATIENT PAIN-PROGRESS Able to walk to the hallway with PT. He tells me the pain is still there. He also notes he has not had a BM since he was admitted. Current Medications Acetaminophen (Tylenol Tab*) 975 mg PO BID [facility] Last Admin: 07/24/18 08:38 Dose: 975 mg Hydrocodone Bitart/Acetaminophen ([place] 5-325 Tab*) 2 tab PO Q6H PRN PRN Reason: PAIN - MODERATE Last Admin: 07/24/18 08:37 Dose: 2 tab Amlodipine Besylate (Norvasc Tab*) 5 mg PO QAM [facility] Last Admin: 07/24/18 09:09 Dose: 5 mg Atorvastatin Calcium (Lipitor*) 10 mg PO QPM [facility] Last Admin: 07/23/18 17:09 Dose: 10 mg Baclofen (Lioresal Tab*) 10 mg PO TID [facility] Last Admin: 07/24/18 08:39 Dose: 10 mg Diazepam (Valium Tab(*)) 5 mg PO Q8H PRN PRN Reason: spasms Last Admin: 07/24/18 09:36 Dose: 5 mg Docusate Sodium (Colace Cap*) 100 mg PO BID [facility] Enoxaparin Sodium (Lovenox(*)) 40 mg SUBCUT Q24H [facility] Last Admin: 07/23/18 17:09 Dose: 40 mg Gabapentin (Neurontin Cap(*)) 300 mg PO 0900,1400,2100 [facility] Last Admin: 07/24/18 08:39 Dose: 300 mg Hydromorphone HCl (Dilaudid Inj1s*) 0.5 mg IV SLOW PU Q4H PRN PRN Reason: PAIN - SEVERE Last Admin: 07/23/18 18:52 Dose: 0.5 mg Lisinopril (Prinivil Tab*) 10 mg PO DAILY [facility] Last Admin: 07/24/18 08:38 Dose: 10 mg Magnesium Hydroxide (Milk Of Magnesia Liq*) 30 ml PO ONCE ONE Stop: 07/24/18 12:48 Miscellaneous (Ativan Pyxis Deluna) 1 ea N/A .ATIVAN IV DELUNA PRN PRN Reason: PYXIS DELUNA Ondansetron HCl (Zofran Inj*) 4 mg IV Q6H PRN PRN Reason: NAUSEA/VOMITING Polyethylene Glycol/Electrolytes (Miralax*) 17 gm PO DAILY PRN PRN Reason: CONSTIPATION Senna (Senokot Tab*) 2 tab PO DAILY [facility] Last Admin: 07/24/18 08:38 Dose: 2 tab Vital Signs Temp Pulse Resp BP Pulse Ox 97.6 F 68 16 109/66 95 07/24/18 07:27 07/24/18 07:27 07/24/18 11:10 07/24/18 07:27 07/24/18 07:27 EXAM: BACK: Tight muscles in paraspinal area EXTREMITIES: Increased tone BLE. ASSESSMENT: 1. Low Back Pain 2. Cerebral Palsy PLAN: Continue Baclofen 10 TID, gradual mobilization with PT, [place] 1-2 PO Q4 PRN. I added MOM for constipation
[2018-07-24] MEDS ORDERED: HYDROcodone/ACETAMIN 5-325 MG* 1 TAB PO PRN (12:52)
[2018-07-24] MEDS: Enoxaparin(*) 40 MG/0.4 ML SYR SUBCUT SCH (14:11)
[2018-07-24] MEDS: Atorvastatin* 10 MG TAB PO SCH (16:51)
[2018-07-24] MEDS: HYDROmorphone INJ1* 1 MG/ML SYRINGE IV SLOW PU PRN (19:54)
[2018-07-25] MEDS: HYDROmorphone INJ1* 1 MG/ML SYRINGE IV SLOW PU PRN (00:48)
[2018-07-25] MEDS: Diazepam TAB(*) 5 MG PO PRN ×2 (00:48→10:49)
[2018-07-25 08:06] VITALS: BP 104/64
[2018-07-25] MEDS: HYDROcodone/ACETAMIN 5-325 MG* 1 TAB PO PRN (08:50)
[2018-07-25] MEDS: Senna TAB PO SCH (08:51)
[2018-07-25] MEDS: Docusate CAP* 100 MG PO SCH (08:51)
[2018-07-25] MEDS: Gabapentin CAP(*) 300 MG PO SCH ×2 (08:51→14:09)
[2018-07-25] MEDS: amLODIPine TAB* 5 MG PO SCH (08:51)
[2018-07-25] MEDS: Lisinopril TAB* 10 MG PO SCH (08:51)
[2018-07-25] MEDS: Baclofen TAB* 10 MG PO SCH ×2 (08:52→14:09)
[2018-07-25] MEDS: Acetaminophen TAB* 325 MG PO SCH (08:53)
== END 2018-07-25 14:45 | disposition home or self-care (01) ==
LOC: ED 16:20 → MED 20:26 → OBSVTOIN 07-23 11:17 → INTOOBSV 07-23 11:17
PROVIDERS: ADMIT Internal Medicine; ATTEND Hospitalist
DX: M54.5 Low back pain (principal); G80.9 Cerebral palsy, unspecified; I10 Essential (primary) hypertension; E78.5 Hyperlipidemia, unspecified; M51.36 Other intervertebral disc degeneration, lumbar region; Z87.442 Personal history of urinary calculi; M19.90 Unspecified osteoarthritis, unspecified site
CPT/HCPCS: 36415; 72148; 80053; 83735; 84100; 85025; 85652; 86140; 96365; 96372; 96375; 96376; 99283; A9270-GY; G0378; J1100; J1170; J1650; J1885; J2060; J2405

== ENCOUNTER 2023-08-13 13:26 | Inpatient (IN) ==
[2023-08-13] MEDS: Lactated Ringers 1000 ml BAG 1,000 ML IV ONE (15:21)
[2023-08-13] MEDS: HYDROmorphone 1 MG/1 ML SYRINGE IV SLOW PU ONE ×4 (15:22→23:02)
[2023-08-13 15:38] LABS: ABS Monocytes 0.5 10^3/uL (0.0-1.1); ABS Neutrophils 7.4 10^3/uL (1.5-7.6); ABS Nucleated RBC 0.03 10^3/ul; Hematocrit 46.2 % (38-53); Hemoglobin 15.6 g/dL (13.2-16.3); Lymphocyte % 27.8 %; Mean Corpuscular Hemoglobin 30.2 pg (27-33); Mean Corpuscular Hgb Conc 33.8 g/dL (31-36); Mean Corpuscular Volume 89.6 fL (80-97); Nucleated Red Blood Cells % 0.3 %/100WBC (0.0-0.8); Platelet Count 235 10^3/uL (150-450); Red Blood Count 5.16 10^6/uL (4.06-5.63); Red Cell Distribution Width 13.1 % (12-17); White Blood Count 10.9 10^3/uL (3.6-10.2)
[2023-08-13 16:54] LABS: Anion Gap 14 mmol/L (2-16); Blood Urea Nitrogen 17 mg/dL (6-24); C Reactive Protein < 1.00 mg/L (<8.01); CO2 Carbon Dioxide 26 mmol/L (22-32); Calcium 9.3 mg/dL (8.6-10.3); Chloride 100 mmol/L (101-111); Creatinine, Serum 1.05 mg/dL (0.67-1.17); Glucose 85 mg/dL (70-100); Potassium 4.2 mmol/L (3.5-5.0); Sodium 140 mmol/L (135-145); eGFR CKD-EPI 86.5 (>60)
[2023-08-13] MEDS: Orphenadrine Citrate INJ 30 mg/ml 2 ml VIAL (60 mg) IV ONE (20:07)
[2023-08-13] MEDS: Dexamethasone IV 4 MG/ML VIAL 1 ml VIAL IV SLOW PU ONE (20:08)
[2023-08-13] MEDS: Acetaminophen IV 1 GM/100ML 1,000 MG/100 ML BAG IV ONE (21:45)
[2023-08-14] MEDS ORDERED: Polyethylene Glycol 3350 17 GM PACKET PO PRN (02:17)
[2023-08-14] MEDS ORDERED: Senna TAB 8.6 mg TAB PO PRN (02:17)
[2023-08-14] MEDS ORDERED: Magnesium Hydroxide LIQ 30 ML UDC PO PRN (02:17)
[2023-08-14] MEDS: HYDROmorphone 1 MG/1 ML SYRINGE IV PRN (05:10)
[2023-08-14 08:56] LABS: ABS Lymphocytes 2.6 10^3/uL (1.0-4.8); ABS Monocytes 0.4 10^3/uL (0.0-1.1); ABS Neutrophils 7.5 10^3/uL (1.5-7.6); ABS Nucleated RBC 0.03 10^3/ul; Hematocrit 45.1 % (38-53); Hemoglobin 15.7 g/dL (13.2-16.3); Lymphocyte % 24.5 %; Mean Corpuscular Hemoglobin 31.2 pg (27-33); Mean Corpuscular Hgb Conc 34.9 g/dL (31-36); Mean Corpuscular Volume 89.4 fL (80-97); Mean Platelet Volume 8.9 fL (7.5-11.2); Nucleated Red Blood Cells % 0.2 %/100WBC (0.0-0.8); Platelet Count 222 10^3/uL (150-450); Red Blood Count 5.04 10^6/uL (4.06-5.63); Red Cell Distribution Width 12.9 % (12-17); White Blood Count 10.5 10^3/uL (3.6-10.2)
[2023-08-14] MEDS ORDERED: AMLODIPINE BENAZEPRIL PO SCH (09:00)
[2023-08-14 09:34] LABS: Anion Gap 10 mmol/L (2-16); Blood Urea Nitrogen 17 mg/dL (6-24); CO2 Carbon Dioxide 29 mmol/L (22-32); Chloride 100 mmol/L (101-111); Creatinine, Serum 0.76 mg/dL (0.67-1.17); Glucose 88 mg/dL (70-100); Potassium 4.2 mmol/L (3.5-5.0); Sodium 139 mmol/L (135-145); eGFR CKD-EPI 109.5 (>60)
[2023-08-14 13:04] LABS: Urine Appearance Clear; Urine Bilirubin Negative (Negative); Urine Blood Negative (Negative); Urine Color Light-Yellow; Urine Glucose Negative (Negative); Urine Ketones 1+ (Negative); Urine Nitrite Negative (Negative); Urine Protein Negative (Negative); Urine Urobilinogen Negative (Negative); Urine pH 6.5 (5.0-8.0)
[2023-08-14 18:01] LABS: C Reactive Protein < 1.00 mg/L (<8.01)
[2023-08-14] MEDS: oxyCODONE/Acetamin 5/325 mg TAB PO PRN (21:31)
[2023-08-15 08:01] LABS: ABS Eosinophils 0.1 10^3/uL (0.0-0.5); ABS Lymphocytes 3.6 10^3/uL (1.0-4.8); ABS Monocytes 0.7 10^3/uL (0.0-1.1); ABS Neutrophils 4.2 10^3/uL (1.5-7.6); ABS Nucleated RBC 0.03 10^3/ul; Eosinophil % 0.8 %; Hematocrit 47.6 % (38-53); Hemoglobin 16.4 g/dL (13.2-16.3); Lymphocyte % 41.6 %; Mean Corpuscular Hemoglobin 31.1 pg (27-33); Mean Corpuscular Hgb Conc 34.5 g/dL (31-36); Mean Platelet Volume 8.7 fL (7.5-11.2); Nucleated Red Blood Cells % 0.3 %/100WBC (0.0-0.8); Platelet Count 216 10^3/uL (150-450); Red Blood Count 5.29 10^6/uL (4.06-5.63); Red Cell Distribution Width 12.9 % (12-17); White Blood Count 8.6 10^3/uL (3.6-10.2)
[2023-08-15 08:47] LABS: Calcium 9.5 mg/dL (8.6-10.3); Creatinine, Serum 0.98 mg/dL (0.67-1.17); Potassium 4.5 mmol/L (3.5-5.0); eGFR CKD-EPI 93.9 (>60)
[2023-08-15] MEDS: Miconazole TOPICAL CREAM 2% 30 GM TOPICAL SCH (09:29)
[2023-08-15] MEDS: HYDROcodone/ACET. 7.5/325 LIQ 15 ML UDC PO PRN (18:01)
[2023-08-16] MEDS: HYDROcodone/ACET. 7.5/325 LIQ 15 ML UDC PO PRN (08:22)
[2023-08-16] MEDS: HYDROmorphone 1 MG/1 ML SYRINGE IV SLOW PU ONE (10:04)
[2023-08-18] MEDS: HYDROcodone/ACETAMIN 5/325 mg TAB PO PRN (05:54)
[2023-08-18 13:18] VITALS: BP 122/86
== END 2023-08-18 13:35 | disposition home or self-care (01) | DRG 347 ==
LOC: ED 13:26 → EDHOLD 13:26 → MED 08-14 14:37 → SUATTDRO 08-16 14:00
PROVIDERS: ADMIT Internal Medicine; ATTEND Internal Medicine